=== PATIENT | female | born 1935 | race Caucasian/White ===

== ENCOUNTER 2018-05-12 03:47 | Emergency (ER) | payer MEDICARE, OTHER ==
[2018-05-12 04:56] LABS: ADD MAN DIFF? NO
[2018-05-12] MEDS: ONDANSETRON 4 MG INJ IV ×2 (04:57→08:04)
[2018-05-12] MEDS: SOD CHLORIDE 0.9% 500 ML IV ×2 (04:57→08:04)
[2018-05-12 04:58] LABS: WHITE BLOOD COUNT 11.1 10^3/ul (4.8-10.8)
[2018-05-12 04:58] LABS: BASOPHILS % 0.2 % (0.0-2.0); EOSINOPHILS # 0.2 10^3/ul (0.0-0.5); EOSINOPHILS % 1.7 % (0.0-7.0); HEMATOCRIT 35.9 % (37.0-47.0); LYMPHOCYTES # 1.9 10^3/ul (0.8-2.9); LYMPHOCYTES % 17.4 % (15.0-51.0); MEAN CORPUSCULAR HEMOGLOBIN 28.9 pg (29.0-33.0); MEAN CORPUSCULAR HGB CONC 33.4 g/dl (32.0-37.0); MEAN CORPUSCULAR VOLUME 86.5 fl (82.0-101.0); MEAN PLATELET VOLUME 9.7 fl (7.4-10.4); MONOCYTE # 0.6 10^3/ul (0.3-0.9); MONOCYTES % 5.4 % (0.0-11.0); NEUTROPHIL # 8.3 10^3/ul (1.6-7.5); PLATELET COUNT 207 10^3/UL (140-415); RED BLOOD COUNT 4.15 10^6/ul (4.20-5.40); RED CELL DISTRIBUTION WIDTH 14.2 % (11.5-14.5)
[2018-05-12 05:14] LABS: ALANINE AMINOTRANSFERASE 16 IU/L (13-69); ALBUMIN 3.8 g/dl (3.3-4.9); ALBUMIN/GLOBULIN RATIO 1.26; ALKALINE PHOSPHATASE 81 IU/L (42-121); ANION GAP 12 (5-13); ASPARTATE AMINO TRANSFERASE 22 IU/L (15-46); BILIRUBIN,INDIRECT 0.5 mg/dl (0-1.1); BILIRUBIN,TOTAL 0.5 mg/dl (0.2-1.3); BLOOD UREA NITROGEN 13 mg/dl (7-20); CALCIUM 9.4 mg/dl (8.4-10.2); CARBON DIOXIDE 22 mmol/L (21-31); CHLORIDE 108 mmol/L (97-110); CREATININE 0.65 mg/dl (0.44-1.00); GLUCOSE 156 mg/dl (70-220); LIPASE 237 U/L (23-300); SODIUM 142 mmol/L (135-144); TOTAL PROTEIN 6.8 g/dl (6.1-8.1)
[2018-05-12 05:25] LABS: TROPONIN-I < 0.012 ng/ml (0.000-0.120)
[2018-05-12] MEDS: METOCLOPRAMIDE 10 MG INJ IV (06:11)
[2018-05-12] MEDS: morphine 2 MG INJ IV (08:04)
[2018-05-12] MEDS: IOHEXOL 300MG/ML 150 ML BTL (08:14)
[2018-05-12] MEDS: SOD CHLORIDE 0.9% 100 ML (08:14)
[2018-05-12] MEDS: PIPER-TAZO 3.375 GM IV (PMX) 100 ML IVPB (09:07)
== END 2018-05-12 12:25 | disposition home or self-care (01) ==
LOC: E/R 03:47
DX: R11.2 Nausea with vomiting, unspecified (principal); E11.9 Type 2 diabetes mellitus without complications; I10 Essential (primary) hypertension
CPT/HCPCS: 36415; 74177; 80053; 83690; 84484; 85025; 93005; 96361; 96374; 96375; 99285-25

== ENCOUNTER 2018-08-01 01:47 | Observation (INO) | payer MEDICARE, OTHER ==
[2018-08-01 02:14] LABS: ADD MAN DIFF? NO
[2018-08-01 02:16] LABS: WHITE BLOOD COUNT 8.8 10^3/ul (4.8-10.8)
[2018-08-01 02:16] LABS: BASOPHIL # 0.1 10^3/ul (0.0-0.1); BASOPHILS % 0.6 % (0.0-2.0); EOSINOPHILS # 0.3 10^3/ul (0.0-0.5); EOSINOPHILS % 3.6 % (0.0-7.0); HEMATOCRIT 38.8 % (37.0-47.0); HEMOGLOBIN 13.2 g/dl (12.0-16.0); LYMPHOCYTES # 2.9 10^3/ul (0.8-2.9); LYMPHOCYTES % 32.8 % (15.0-51.0); MEAN CORPUSCULAR VOLUME 85.3 fl (82.0-101.0); MEAN PLATELET VOLUME 9.7 fl (7.4-10.4); MONOCYTE # 0.5 10^3/ul (0.3-0.9); MONOCYTES % 5.6 % (0.0-11.0); NEUTROPHILS % 57.1 % (39.0-77.0); PLATELET COUNT 264 10^3/UL (140-415); RED BLOOD COUNT 4.55 10^6/ul (4.20-5.40); RED CELL DISTRIBUTION WIDTH 13.9 % (11.5-14.5)
[2018-08-01 02:35] LABS: ALANINE AMINOTRANSFERASE 18 IU/L (13-69); ALBUMIN 4.7 g/dl (3.3-4.9); ALBUMIN/GLOBULIN RATIO 1.67; ALKALINE PHOSPHATASE 94 IU/L (42-121); ANION GAP 16 (5-13); ASPARTATE AMINO TRANSFERASE 32 IU/L (15-46); BILIRUBIN,INDIRECT 0.8 mg/dl (0-1.1); BILIRUBIN,TOTAL 0.8 mg/dl (0.2-1.3); CALCIUM 9.7 mg/dl (8.4-10.2); CARBON DIOXIDE 18 mmol/L (21-31); CHLORIDE 105 mmol/L (97-110); CREATININE 0.72 mg/dl (0.44-1.00); POTASSIUM 3.4 mmol/L (3.5-5.1); SODIUM 139 mmol/L (135-144); TOTAL PROTEIN 7.5 g/dl (6.1-8.1)
[2018-08-01 02:40] LABS: BLOOD UREA NITROGEN 12 mg/dl (7-20)
[2018-08-01 02:46] LABS: B-TYPE NATRIURETIC PEPTIDE 29 PG/ML (0-450); TROPONIN-I < 0.012 ng/ml (0.000-0.120)
[2018-08-01 02:59] LABS: GLUCOSE 162 mg/dl (70-220)
[2018-08-01] MEDS ORDERED: NACL 0.9% 3 ML SYG IV (04:30)
[2018-08-01] MEDS ORDERED: NITROGLYCERIN (SL) 0.4 MG TAB SL (04:30)
[2018-08-01] MEDS ORDERED: ALBUTEROL/IPRATROPIUM (NEB) 3 ML AMP HHN (04:30)
[2018-08-01] MEDS ORDERED: MECLIZINE 25 MG TAB PO (04:30)
[2018-08-01 08:38] LABS: CREATINE KINASE 70 IU/L (23-200)
[2018-08-01] MEDS: CLOPIDOGREL 75 MG TAB PO (08:40)
[2018-08-01] MEDS: PANTOPRAZOLE (EC) 40 MG TAB PO (08:40)
[2018-08-01] MEDS: ACETAMINOPHEN 325 MG TAB PO (08:40)
[2018-08-01] MEDS: LUBIPROSTONE 24 MCG CAP PO (08:41)
[2018-08-01] MEDS: MEMANTINE 5 MG TAB PO (08:41)
[2018-08-01] MEDS: DONEPEZIL 10 MG TAB PO (08:41)
[2018-08-01] MEDS: LEVOTHYROXINE 88 MCG TAB PO (08:41)
[2018-08-01] MEDS: HEPARIN 5,000 UNIT/1 ML VIAL SC ×2 (08:42→21:44)
[2018-08-01 08:49] LABS: CK INDEX 2.1; CK-MB 1.46 ng/ml (0.0-2.4); TROPONIN-I < 0.012 ng/ml (0.000-0.120)
[2018-08-01] MEDS ORDERED: OLMESARTAN MED PO (09:00)
[2018-08-01] MEDS ORDERED: AMLODIPINE BES PO (09:00)
[2018-08-01] MEDS ORDERED: [UNRECOGNIZED DRUG - OTHER] PO (09:00)
[2018-08-01] MEDS: METOPROLOL (XL) 25 MG TAB PO (09:00)
[2018-08-01] MEDS: ONDANSETRON 4 MG INJ IV ×2 (13:13→21:36)
[2018-08-01] MEDS: AMLODIPINE 5 MG TAB PO (13:25)
[2018-08-01] MEDS: LOSARTAN 50 MG TAB PO (13:25)
[2018-08-01 14:31] LABS: CREATINE KINASE 108 IU/L (23-200)
[2018-08-01 14:42] LABS: CK INDEX 2.1; CK-MB 2.24 ng/ml (0.0-2.4); TROPONIN-I < 0.012 ng/ml (0.000-0.120)
[2018-08-01] MEDS ORDERED: ATORVASTATIN 80 MG TAB PO (21:00)
[2018-08-02] MEDS: PANTOPRAZOLE (EC) 40 MG TAB PO (05:13)
[2018-08-02 06:12] LABS: ADD MAN DIFF? NO
[2018-08-02 06:18] LABS: BASOPHIL # 0.1 10^3/ul (0.0-0.1); BASOPHILS % 0.6 % (0.0-2.0); EOSINOPHILS # 0.3 10^3/ul (0.0-0.5); EOSINOPHILS % 3.9 % (0.0-7.0); HEMATOCRIT 42.1 % (37.0-47.0); HEMOGLOBIN 13.8 g/dl (12.0-16.0); LYMPHOCYTES # 3.2 10^3/ul (0.8-2.9); LYMPHOCYTES % 40.6 % (15.0-51.0); MEAN CORPUSCULAR HEMOGLOBIN 28.9 pg (29.0-33.0); MEAN CORPUSCULAR HGB CONC 32.8 g/dl (32.0-37.0); MEAN CORPUSCULAR VOLUME 88.1 fl (82.0-101.0); MEAN PLATELET VOLUME 11.1 fl (7.4-10.4); MONOCYTE # 0.4 10^3/ul (0.3-0.9); MONOCYTES % 5.4 % (0.0-11.0); NEUTROPHIL # 3.9 10^3/ul (1.6-7.5); NEUTROPHILS % 49.4 % (39.0-77.0); PLATELET COUNT 249 10^3/UL (140-415); RED BLOOD COUNT 4.78 10^6/ul (4.20-5.40); RED CELL DISTRIBUTION WIDTH 14.3 % (11.5-14.5)
[2018-08-02 06:18] LABS: WHITE BLOOD COUNT 7.9 10^3/ul (4.8-10.8)
[2018-08-02] MEDS: LEVOTHYROXINE 88 MCG TAB PO (06:19)
[2018-08-02 06:25] LABS: POSITIVE DIFF @See below
[2018-08-02 06:30] LABS: HEMOGLOBIN A1C 5.8 % (0-5.9)
[2018-08-02 06:48] LABS: ALANINE AMINOTRANSFERASE 23 IU/L (13-69); ALBUMIN 4.3 g/dl (3.3-4.9); ALBUMIN/GLOBULIN RATIO 1.43; ALKALINE PHOSPHATASE 67 IU/L (42-121); ANION GAP 10 (5-13); ASPARTATE AMINO TRANSFERASE 30 IU/L (15-46); BILIRUBIN,INDIRECT 1.1 mg/dl (0-1.1); BILIRUBIN,TOTAL 1.1 mg/dl (0.2-1.3); BLOOD UREA NITROGEN 18 mg/dl (7-20); CALCIUM 9.5 mg/dl (8.4-10.2); CARBON DIOXIDE 28 mmol/L (21-31); CHLORIDE 99 mmol/L (97-110); CHOL/HDL RATIO 2.7 RATIO; CHOLESTEROL 181 mg/dl (100-200); CREATININE 1.08 mg/dl (0.44-1.00); GLUCOSE 116 mg/dl (70-220); HDL CHOLESTEROL 66 mg/dl (33-92); LDL CHOLESTEROL,CALCULATED 83 mg/dl; MAGNESIUM 2.3 mg/dl (1.7-2.5); POTASSIUM 4.1 mmol/L (3.5-5.1); SODIUM 137 mmol/L (135-144); TOTAL PROTEIN 7.3 g/dl (6.1-8.1); TRIGLYCERIDES 159 mg/dl (0-149)
[2018-08-02] MEDS: METOPROLOL (XL) 25 MG TAB PO (08:49)
[2018-08-02] MEDS: HEPARIN 5,000 UNIT/1 ML VIAL SC ×2 (08:50→20:27)
[2018-08-02] MEDS: INFLUENZA VIRUS VACCINE 0.5 ML (DISPENSING) IM* (09:43)
[2018-08-02] MEDS: DEXTROSE 5%-0.45% NACL 1,000 ML IV (12:57)
[2018-08-02] MEDS ORDERED: ONDANSETRON 4 MG INJ IV (16:00)
[2018-08-03] MEDS: LORAZEPAM 1 MG TAB PO (02:58)
[2018-08-03 05:44] LABS: ADD MAN DIFF? NO
[2018-08-03] MEDS: PANTOPRAZOLE (EC) 40 MG TAB PO (05:47)
[2018-08-03 05:54] LABS: WHITE BLOOD COUNT 6.8 10^3/ul (4.8-10.8)
[2018-08-03 05:54] LABS: BASOPHIL # 0.1 10^3/ul (0.0-0.1); BASOPHILS % 0.7 % (0.0-2.0); EOSINOPHILS # 0.3 10^3/ul (0.0-0.5); EOSINOPHILS % 4.4 % (0.0-7.0); HEMATOCRIT 39.1 % (37.0-47.0); LYMPHOCYTES # 2.7 10^3/ul (0.8-2.9); MEAN CORPUSCULAR HEMOGLOBIN 29.2 pg (29.0-33.0); MEAN CORPUSCULAR HGB CONC 33.2 g/dl (32.0-37.0); MEAN CORPUSCULAR VOLUME 87.9 fl (82.0-101.0); MEAN PLATELET VOLUME 10.1 fl (7.4-10.4); MONOCYTE # 0.4 10^3/ul (0.3-0.9); MONOCYTES % 5.9 % (0.0-11.0); NEUTROPHIL # 3.4 10^3/ul (1.6-7.5); NEUTROPHILS % 49.9 % (39.0-77.0); PLATELET COUNT 239 10^3/UL (140-415); RED BLOOD COUNT 4.45 10^6/ul (4.20-5.40); RED CELL DISTRIBUTION WIDTH 14.2 % (11.5-14.5)
[2018-08-03] MEDS: LEVOTHYROXINE 88 MCG TAB PO (06:01)
[2018-08-03 06:13] LABS: INR 0.92; PROTIME 12.5 Sec (11.9-14.9)
[2018-08-03 06:22] LABS: ALANINE AMINOTRANSFERASE 17 IU/L (13-69); ALBUMIN 4.1 g/dl (3.3-4.9); ALBUMIN/GLOBULIN RATIO 1.46; ALKALINE PHOSPHATASE 72 IU/L (42-121); ANION GAP 10 (5-13); ASPARTATE AMINO TRANSFERASE 28 IU/L (15-46); BILIRUBIN,INDIRECT 1.1 mg/dl (0-1.1); BILIRUBIN,TOTAL 1.1 mg/dl (0.2-1.3); BLOOD UREA NITROGEN 15 mg/dl (7-20); CALCIUM 9.2 mg/dl (8.4-10.2); CARBON DIOXIDE 24 mmol/L (21-31); CHLORIDE 103 mmol/L (97-110); CREATININE 0.89 mg/dl (0.44-1.00); GLUCOSE 123 mg/dl (70-220); LACTATE DEHYDROGENASE 340 IU/L (313-618); LIPASE 182 U/L (23-300); POTASSIUM 3.7 mmol/L (3.5-5.1); SODIUM 137 mmol/L (135-144); TOTAL PROTEIN 6.9 g/dl (6.1-8.1)
[2018-08-03] MEDS: METOPROLOL (XL) 25 MG TAB PO (08:48)
[2018-08-03] MEDS: HEPARIN 5,000 UNIT/1 ML VIAL SC (09:01)
== END 2018-08-03 18:00 | disposition home health service (06) ==
LOC: E/R 01:47 → 6WM 12:40 → ICU 03:49 → 6WM 21:10
DX: R07.89 Other chest pain (principal); K29.50 Unspecified chronic gastritis without bleeding; B96.81 Helicobacter pylori [H. pylori] as the cause of diseases classified elsewhere; I10 Essential (primary) hypertension; E78.5 Hyperlipidemia, unspecified; E11.9 Type 2 diabetes mellitus without complications; E03.9 Hypothyroidism, unspecified; K57.30 Diverticulosis of large intestine without perforation or abscess without bleeding; E88.81 Metabolic syndrome and other insulin resistance; Z23 Encounter for immunization
CPT/HCPCS: 36415; 71045; 80053; 80061; 82550; 82553; 82962; 83036; 83615; 83690; 83735; 83880; 84443; 84484; 85025; 85610; 87081; 88305; 88312; 90686; 93005; 93306; 99285-25; G0378